=== PATIENT | female | born 1990 ===

== ENCOUNTER 2020-07-01 13:45 | Emergency (ER) | payer SELFPAY ==
--- NOTE | 2020-07-01 14:13 | Emergency Department Report ---
Blank Doc - Documentation Documentation: 30-year-old female that presents with right breast pain, redness, and swelling. Exam: severe swelling to right breast with pain and swelling. 1- This initial assessment/diagnostic orders/clinical plan/ treatment(s) is/are subject to change based on pt's health status, clinical progression and re- assessment by fellow clinical providers in the ED. Further treatment and workup at subsequent clinical provers discretion. Patient/guardians urged not to elope from ED as their condition may be serious if not clinically assessed and managed. 2-labs 3-possible CT/US soft tissue
[2020-07-01 14:43] LABS: Basophils # (Auto) 0.1 K/mm3 (0.0-0.1); Basophils % (Auto) 1.8 % (0.0-1.8); Eosinophils # (Auto) 0.1 K/mm3 (0.0-0.4); Eosinophils % (Auto) 1.3 % (0.0-4.3); Hematocrit 39.9 % (30.3-42.9); Hemoglobin 13.7 gm/dl (10.1-14.3); Lymphocytes # (Auto) 0.8 K/mm3 (1.2-5.4); Lymphocytes % (Auto) 11.4 % (13.4-35.0); Mean Corpuscular HGB Conc 34 % (30-34); Mean Corpuscular Volume 80 fl (79-97); Monocytes # (Auto) 0.4 K/mm3 (0.0-0.8); Monocytes % (Auto) 5.1 % (0.0-7.3); Platelet Count 227 K/mm3 (140-440); Red Blood Count 4.98 M/mm3 (3.65-5.03); Red Cell Distribution Width 14.2 % (13.2-15.2)
[2020-07-01 14:51] LABS: Alanine Aminotransferase 19 units/L (7-56); Albumin 4.4 g/dL (3.9-5); Blood Urea Nitrogen 10 mg/dL (7-17); Calcium 8.9 mg/dL (8.4-10.2); Hemolysis Index 1
[2020-07-01 14:52] LABS: BUN/Creatinine Ratio 17
[2020-07-01] MEDS ORDERED: KETOROLAC 30 MG/1 ML INJ IV ONE (16:21)
[2020-07-01] MEDS ORDERED: CLINDAMYCIN 600 MG/50 mL 600 MG/50 ML BAG IV ONE (16:21)
--- NOTE | 2020-07-01 16:24 | Emergency Department Report ---
- General Chief complaint: Skin/Abscess/Foreign Body Stated complaint: RT BREAST CYST Time Seen by Provider: 07/01/20 14:10 Source: patient Mode of arrival: Ambulatory Limitations: No Limitations - History of Present Illness Initial comments: 30-year-old female with no significant past medical or surgical history presents to the hospital planing of progressively worsening right breast swelling and pain for the past 3 days. Patient states she has similar swelling and pain secondary to infection 1 month ago. She was treated at a [facility] ED with Bactrim and [place] (without I&D) with improvement in swelling and pain. Symptoms reoccurred 3 days ago. Patient complains of 10/10 pain that is constant worse with movement and palpation. No fever reported. Patient states she had a bar piercing placed 3 years ago with retained foreign body. The bar was removed but the ball that held the bar in place is still within her areola/nipple area and the skin has a grown over it. - Related Data Previous Rx's Medication Instructions Recorded Last Taken Type Clindamycin [Clindamycin CAP] 450 mg PO Q8HR 7 Days capsule 07/01/20 Unknown Rx HYDROcodone/APAP 5-325 [[place] 1 each PO Q6HR PRN #14 tablet 07/01/20 Unknown Rx 5/325] Ibuprofen [Motrin] 600 mg PO Q8H PRN #20 tablet 07/01/20 Unknown Rx Allergies Allergy/AdvReac Type Severity Reaction Status Date / Time No Known Allergies Allergy Unverified 07/01/20 13:51 Abscess Boil HPI - HPI Chief Complaint: Skin/Abscess/Foreign Body Stated Complaint: RT BREAST CYST Time Seen by Provider: 07/01/20 14:10 Home Medications: Previous Rx's Medication Instructions Recorded Last Taken Type Clindamycin [Clindamycin CAP] 450 mg PO Q8HR 7 Days capsule 07/01/20 Unknown Rx HYDROcodone/APAP 5-325 [[place] 1 each PO Q6HR PRN #14 tablet 07/01/20 Unknown Rx 5/325] Ibuprofen [Motrin] 600 mg PO Q8H PRN #20 tablet 07/01/20 Unknown Rx Allergies/Adverse Reactions: Allergies Allergy/AdvReac Type Severity Reaction Status Date / Time No Known Allergies Allergy Unverified 07/01/20 13:51 ED Review of Systems ROS: Stated complaint: RT BREAST CYST Other details as noted in HPI Comment: All other systems reviewed and negative ED Past Medical Hx - Past Medical History Previous Medical History?: No - Surgical History Past Surgical History?: No - Social History Smoking Status: Never Smoker Substance Use Type: Marijuana - Medications Home Medications: Home Medications Medication Instructions Recorded Confirmed Last Taken Type Clindamycin [Clindamycin CAP] 450 mg PO Q8HR 7 Days capsule 07/01/20 Unknown Rx HYDROcodone/APAP 5-325 [[place] 1 each PO Q6HR PRN #14 tablet 07/01/20 Unknown Rx 5/325] Ibuprofen [Motrin] 600 mg PO Q8H PRN #20 tablet 07/01/20 Unknown Rx ED Physical Exam - General Limitations: No Limitations - Other Other exam information: General: No acute distress Head: Atraumatic Eyes: normal appearance ENT: Moist mucous membranes Neck: Normal appearance, no midline tenderness Chest: Swelling to right areola greatest at the superior area of the right areola with swelling and redness to superior inferior breast area with diffuse tenderness. No significant induration. Mild fluctuance at the areolar area. Very tender to palpation CV: Regular rate and rhythm Abdomen: Soft, normal bowel sounds, nontender, nondistended, no rebound or guarding Back: Normal inspection Extremity: Normal inspection, full range of motion Neuro: Alert O x 3, no facial asymmetry, speech clear, no gross motor sensory deficit Psych: Appropriate behavior Skin: No rash ED Course Vital Signs 07/01/20 07/01/20 07/01/20 13:51 17:10 17:17 Temperature 97.8 F Pulse Rate 79 Respiratory 20 18 18 Rate Blood Pressure 114/59 O2 Sat by Pulse 97 97 Oximetry 07/01/20 07/01/20 07/01/20 17:47 18:12 18:42 Temperature Pulse Rate Respiratory 18 1 L 18 Rate Blood Pressure O2 Sat by Pulse Oximetry - Consultations Consultation #1: 07/01/20 18:[address] Nick breast surgeon who advises that patient needs to follow-up as outpatient for possible aspiration of abscess. This will likely be done by radiologist with ultrasound guidance. She requests a breast ultrasound prior to discharge and for patient to call the office number tomorrow for follow-up. ED Medical Decision Making - Lab Data Result diagrams: 07/01/20 14:25 07/01/20 14:25 Lab Results 07/01/20 07/01/20 07/01/20 Range/Units 14:25 14:25 14:25 WBC 7.4 (4.5-11.0) K/mm3 RBC 4.98 (3.65-5.03) M/mm3 Hgb 13.7 (10.1-14.3) gm/dl Hct 39.9 (30.3-42.9) % MCV 80 (79-97) fl MCH 28 (28-32) pg MCHC 34 (30-34) % RDW 14.2 (13.2-15.2) % Plt Count 227 (140-440) K/mm3 Lymph % (Auto) 11.4 L (13.4-35.0) % [place] % (Auto) 5.1 (0.0-7.3) % Eos % (Auto) 1.3 (0.0-4.3) % Baso % (Auto) 1.8 (0.0-1.8) % Lymph # (Auto) 0.8 L (1.2-5.4) K/mm3 [place] # (Auto) 0.4 (0.0-0.8) K/mm3 Eos # (Auto) 0.1 (0.0-0.4) K/mm3 Baso # (Auto) 0.1 (0.0-0.1) K/mm3 Seg Neutrophils % 80.4 H (40.0-70.0) % Seg Neutrophils # 5.9 (1.8-7.7) K/mm3 Sodium 138 (137-145) mmol/L Potassium 4.3 (3.6-5.0) mmol/L Chloride 104.6 (98-107) mmol/L Carbon Dioxide 28 (22-30) mmol/L Anion Gap 10 mmol/L BUN 10 (7-17) mg/dL Creatinine 0.6 (0.6-1.2) mg/dL Estimated GFR > 60 ml/min BUN/Creatinine Ratio 17 % Glucose 91 (65-100) mg/dL Calcium 8.9 (8.4-10.2) mg/dL Total Bilirubin 0.70 (0.1-1.2) mg/dL AST 19 (5-40) units/L ALT 19 (7-56) units/L Alkaline Phosphatase 72 (35-129) units/L Total Protein 7.1 (6.3-8.2) g/dL Albumin 4.4 (3.9-5) g/dL Albumin/Globulin Ratio 1.6 % HCG, Qual Negative (Negative) - Radiology Data Radiology results: report reviewed CT CHEST WITH CONTRAST INDICATION / CLINICAL INFORMATION: Right breast swelling. TECHNIQUE: Axial CT images were obtained through the chest after 100 cc of Omnipaque [address] scans at this location are performed using CT dose reduction for ALARA by means of automated exposure control. COMPARISON: None available. FINDINGS: HEART: No significant abnormality. THORACIC AORTA: No significant abnormality. MEDIASTINUM and TICO: No significant abnormality. LUNGS: No acute air space or interstitial disease. PLEURA: No significant pleural effusion. No pneumothorax. ADDITIONAL FINDINGS: There is a metallic foreign body in the anterior aspect of the right breast. Adjacent to this there is a 3.3 x 1.4 cm fluid collection within enhancing rim could represent hematoma or abscess. There is skin thickening in the right breast. UPPER ABDOMEN: No significant abnormality. SKELETAL SYSTEM: No acute abnormality. IMPRESSION: 1. There is a metallic foreign body in the anterior right breast. There is a fluid. Collection with enhancing rim in the anterior right breast which could represent abscess or hematoma. There is skin thickening. The possibility that the changes in the right breast could represent neoplasm are included in the differential diagnosis though felt to be less likely. Correlation with physical exam is recommended. US breast RT complete INDICATION / CLINICAL INFORMATION: right breast fluid collection. COMPARISON: CT from 07/01/2020 FINDINGS: There is a 2.6 x 1.3 x 3.4 cm mixed echogenicity collection in the retroareolar right breast. 4 mm metallic foreign body is present in the collection. There is adjacent hyperemia without discrete internal Doppler flow. Diffuse subcutaneous edema seen throughout the right breast. IMPRESSION: 3.4 cm collection in the right breast is most consistent with abscess. Metallic foreign body is present within the region of the fluid collection. Following resolution of acute process, mammographic follow-up is recommended. Critical Care Time: No Critical care attestation.: If time is entered above; I have spent that time in minutes in the direct care of this critically ill patient, excluding procedure time. ED Disposition Clinical Impression: Abscess of right breast, Foreign body of right breast with infection Disposition: - TO HOME OR SELFCARE Is pt being admited?: No Does the pt Need Aspirin: No Condition: Stable Instructions: Skin Abscess Additional Instructions: It is very important that you call the breast surgeon provided tomorrow morning (07/02) for an appointment this week. It is likely that the breast surgeon will arrange for you to have drainage of your abscess which is necessary for complete treatment of your infection. Take the medication as prescribed. Return if symptoms worsen as indicated by your discharge instructions. Prescriptions: Clindamycin [Clindamycin CAP] 450 mg PO Q8HR 7 Days capsule Ibuprofen [Motrin] 600 mg PO Q8H PRN #20 tablet PRN Reason: Pain HYDROcodone/APAP 5-325 [[place] 5/325] 1 each PO Q6HR PRN #14 tablet PRN Reason: Pain Referrals: KRYSTINA NICK MD [Staff Physician] - 2-3 Days (breast surgeon) Time of Disposition: 23:55
[2020-07-01] MEDS ORDERED: ONDANSETRON 4 MG/2 ML INJ IV ONE ×2 (17:32→21:44)
[2020-07-01] MEDS ORDERED: MORPHINE 4 MG/1 ML INJ IV ONE ×2 (17:32→21:44)
--- NOTE | 2020-07-01 17:42 | Cat Scan Report ---
CT CHEST WITH CONTRAST INDICATION / CLINICAL INFORMATION: Right breast swelling. TECHNIQUE: Axial CT images were obtained through the chest after 100 cc of Omnipaque [address] sca ns at this location are performed using CT dose reduction for ALARA by means of automated exposure co ntrol. COMPARISON: None available. FINDINGS: HEART: No significant abnormality. THORACIC AORTA: No significant abnormality. MEDIASTINUM and TICO: No significant abnormality. LUNGS: No acute air space or interstitial disease. PLEURA: No significant pleural effusion. No pneumothorax. ADDITIONAL FINDINGS: There is a metallic foreign body in the anterior aspect of the right breast. Adj acent to this there is a 3.3 x 1.4 cm fluid collection within enhancing rim could represent hematoma or abscess. There is skin thickening in the right breast. UPPER ABDOMEN: No significant abnormality. SKELETAL SYSTEM: No acute abnormality. IMPRESSION: 1. There is a metallic foreign body in the anterior right breast. There is a fluid. Collection with e nhancing rim in the anterior right breast which could represent abscess or hematoma. There is skin th ickening. The possibility that the changes in the right breast could represent neoplasm are included in the differential diagnosis though felt to be less likely. Correlation with physical exam is recomm ended. Signer Name: Joseph Mckeon MD Signed: 07/01/2020 5:38 PM Workstation Name: [id number]
--- NOTE | 2020-07-01 23:45 | Ultrasound Report ---
US breast RT complete INDICATION / CLINICAL INFORMATION: right breast fluid collection. COMPARISON: CT from 07/01/2020 FINDINGS: There is a 2.6 x 1.3 x 3.4 cm mixed echogenicity collection in the retroareolar right breast. 4 mm me tallic foreign body is present in the collection. There is adjacent hyperemia without discrete editing internship al Doppler flow. Diffuse subcutaneous edema seen throughout the right breast. IMPRESSION: 3.4 cm collection in the right breast is most consistent with abscess. Metallic foreign body is prese nt within the region of the fluid collection. Following resolution of acute process, mammographic fol low-up is recommended. Signer Name: García Nance MD Signed: 07/01/2020 11:40 PM Workstation Name: [id number]
[2020-07-02] MEDS ORDERED: HYDROcodone/ACETAMINOPHEN 5-325 MG TAB PO ONE (00:01)
[2020-07-02 00:18] VITALS: BP 132/69
== END 2020-07-02 00:17 | disposition home or self-care (01) ==
LOC: ED 13:45
DX: S20.151A Superficial foreign body of breast, right breast, initial encounter (principal); N61.1 Abscess of the breast and nipple; F12.90 Cannabis use, unspecified, uncomplicated; Z79.899 Other long term (current) drug therapy; X58.XXXA Exposure to other specified factors, initial encounter; Y93.89 Activity, other specified; Y92.89 Other specified places as the place of occurrence of the external cause; Y99.8 Other external cause status
CPT/HCPCS: 36415; 71260; 76641; 80053; 84703; 85025; 96365; 96375; 96376; 99284; J1885; J2270; J2405; Q9967

== ENCOUNTER 2020-07-04 18:29 | Emergency (ER) | payer SELFPAY ==
[2020-07-04] MEDS ORDERED: LIDOCAINE (1%) 10 MG/1 ML VIAL 20 ML MDV INFILTRATI ONE (20:56)
--- NOTE | 2020-07-04 22:04 | Emergency Department Report ---
ED General Adult HPI - General Chief complaint: Skin/Abscess/Foreign Body Stated complaint: ABSCESS LEAKING Time Seen by Provider: 07/04/20 19:23 Source: patient Mode of arrival: Ambulatory Limitations: No Limitations - History of Present Illness Initial comments: 30-year-old -English female patient presents with complaints of worsening right breast pain and drainage today. Patient was seen here on 07/01/2020 for a abscess of the right breast and placed on clindamycin and referred to breast surgeon. She states compliance with her antibiotics and denies any fever/chills/sweats or worsening of the swelling of the breasts. No prior medical history per patient. Patient rates her pain as a 9/10 in severity - Related Data Previous Rx's Medication Instructions Recorded Last Taken Type Clindamycin [Clindamycin CAP] 450 mg PO Q8HR 7 Days capsule 07/01/20 Unknown Rx HYDROcodone/APAP 5-325 [[place] 1 each PO Q6HR PRN #14 tablet 07/01/20 Unknown Rx 5/325] Ibuprofen [Motrin] 600 mg PO Q8H PRN #20 tablet 07/01/20 Unknown Rx Acetaminophen/Codeine [Tylenol 1 tab PO Q6H PRN #12 tab 07/04/20 Unknown Rx /Codeine # 3 tab] Sulfamethoxazole/Trimethoprim 1 each PO BID 7 Days #14 tablet 07/04/20 Unknown Rx [Bactrim DS TAB] Allergies Allergy/AdvReac Type Severity Reaction Status Date / Time No Known Allergies Allergy Verified 07/04/20 18:43 ED Review of Systems ROS: Stated complaint: ABSCESS LEAKING Other details as noted in HPI Constitutional: denies: chills, diaphoresis, fever, malaise, weakness Respiratory: denies: shortness of breath Cardiovascular: as per HPI Skin: change in color, pruritus Hematological/Lymphatic: denies: swollen glands ED Past Medical Hx - Social History Smoking Status: Current Some Day Smoker Substance Use Type: None - Medications Home Medications: Home Medications Medication Instructions Recorded Confirmed Last Taken Type Clindamycin [Clindamycin CAP] 450 mg PO Q8HR 7 Days capsule 07/01/20 Unknown Rx HYDROcodone/APAP 5-325 [[place] 1 each PO Q6HR PRN #14 tablet 07/01/20 Unknown Rx 5/325] Ibuprofen [Motrin] 600 mg PO Q8H PRN #20 tablet 07/01/20 Unknown Rx Acetaminophen/Codeine [Tylenol 1 tab PO Q6H PRN #12 tab 07/04/20 Unknown Rx /Codeine # 3 tab] Sulfamethoxazole/Trimethoprim 1 each PO BID 7 Days #14 tablet 07/04/20 Unknown Rx [Bactrim DS TAB] ED Physical Exam - General Limitations: No Limitations General appearance: alert, in no apparent distress - Head Head exam: Present: atraumatic, normocephalic - Respiratory Respiratory exam: Present: normal lung sounds bilaterally. Absent: respiratory distress - Cardiovascular Cardiovascular Exam: Present: regular rate, tachycardia (Mild) - Extremities Exam Extremities exam: Present: full ROM - Neurological Exam Neurological exam: Present: alert, oriented X3, normal gait - Psychiatric Psychiatric exam: Present: normal affect, normal mood - Skin Skin exam: Present: warm, dry, other (Swelling and induration noted to right breast with open draining abscess noted at approximately 12:00 of the areola; there is surrounding mild cellulitis noted; significant tenderness to palpation noted) ED Course Vital Signs 07/04/20 07/04/20 18:44 23:41 Temperature 98.9 F Pulse Rate 109 H 89 Respiratory 22 18 Rate Blood Pressure 144/91 Blood Pressure 142/95 [Left] O2 Sat by Pulse 97 96 Oximetry - I & D Chest Type of Procedure: Simple Site: Right breast I & D Procedure: betadine prep, sterile drapes applied, sterile dressing applied Progress: 10 cc of lidocaine 1% without epi used to anesthetize area. Moderate purulent drainage was obtained. Sample was sent for wound culture. Minimal bleeding occurred. Patient tolerated procedure well without any immediate complications. Sterile dressing applied. ED Medical Decision Making - Lab Data Result diagrams: 07/04/20 22:33 07/04/20 22:33 Lab Results 07/04/20 07/04/20 07/04/20 Range/Units 22:33 22:33 22:33 WBC 13.0 H (4.5-11.0) K/mm3 RBC 5.09 H (3.65-5.03) M/mm3 Hgb 14.2 (10.1-14.3) gm/dl Hct 40.6 (30.3-42.9) % MCV 80 (79-97) fl MCH 28 (28-32) pg MCHC 35 H (30-34) % RDW 13.9 (13.2-15.2) % Plt Count 251 (140-440) K/mm3 Sodium 134 L (137-145) mmol/L Potassium 3.9 (3.6-5.0) mmol/L Chloride 99.3 (98-107) mmol/L Carbon Dioxide 25 (22-30) mmol/L Anion Gap 14 mmol/L BUN 7 (7-17) mg/dL Glucose 89 (65-100) mg/dL Calcium 9.0 (8.4-10.2) mg/dL Total Bilirubin 0.90 (0.1-1.2) mg/dL AST 17 (5-40) units/L ALT 12 (7-56) units/L Alkaline Phosphatase 78 (35-129) units/L Total Protein 8.0 (6.3-8.2) g/dL Albumin 4.3 (3.9-5) g/dL Albumin/Globulin Ratio 1.2 % HCG, Qual Negative (Negative) - Medical Decision Making 30-year-old -English female patient presents with complaints of worsening right breast pain and drainage today. Patient was seen here on 07/01/2020 for a abscess of the right breast and placed on clindamycin and referred to breast surgeon. She states compliance with her antibiotics and denies any fever/chills/sweats or worsening of the swelling of the breasts. No prior medical history per patient. Patient rates her pain as a 9/[address] done on 07/01/2020 showed abscess with foreign body-patient states this is part of her ring has been stuck for a few years Incision and drainage performed. Patient tolerated procedure well. Wound culture sent. Heart rate noted to be mildly elevated at 109. CBC shows white count of 13, however patient remains afebrile and heart rate is now normal. Patient given IV Rocephin and Bactrim added in addition to her clindamycin. Patient informed to follow-up with breast surgeon within 2 days for further evaluation and removal of foreign body from her breast. Wound care was discussed in great detail along with importance of warm compresses. Discussed signs and symptoms that should prompt immediate return to the emergency department in detail with patient who verbalized understanding. Critical care attestation.: If time is entered above; I have spent that time in minutes in the direct care of this critically ill patient, excluding procedure time. ED Disposition Clinical Impression: Cellulitis of right breast, Abscess of right breast Disposition: DC-01 TO HOME OR SELFCARE Is pt being admited?: No Condition: Stable Instructions: Cellulitis, Adult, Mastitis, Incision and Drainage, Care After Additional Instructions: Please follow-up with your breast surgeon in 2 days Prescriptions: Sulfamethoxazole/Trimethoprim [Bactrim DS TAB] 1 each PO BID 7 Days #14 tablet Acetaminophen/Codeine [Tylenol /Codeine # 3 tab] 1 tab PO Q6H PRN #12 tab PRN Reason: Pain , Severe (7-10) Referrals: PRIMARY CARE,MD [Primary Care Provider] - 3-5 Days
[2020-07-04] MEDS ORDERED: ONDANSETRON 4 MG ODT TAB PO ONE (22:05)
[2020-07-04] MEDS ORDERED: cefTRIAXone/NS 1 GM/50 ML 1 GM/50 ML BAG IV ONE (22:05)
[2020-07-04] MEDS ORDERED: MORPHINE 4 MG/1 ML INJ IV ONE (22:05)
[2020-07-04] MEDS ORDERED: KETOROLAC 30 MG/1 ML INJ IV ONE (22:16)
[2020-07-04 22:50] LABS: Hematocrit 40.6 % (30.3-42.9); Hemoglobin 14.2 gm/dl (10.1-14.3); Mean Corpuscular HGB Conc 35 % (30-34); Mean Corpuscular Volume 80 fl (79-97); Platelet Count 251 K/mm3 (140-440); Red Blood Count 5.09 M/mm3 (3.65-5.03); Red Cell Distribution Width 13.9 % (13.2-15.2)
[2020-07-04 23:13] LABS: Alanine Aminotransferase 12 units/L (7-56); Albumin 4.3 g/dL (3.9-5); Blood Urea Nitrogen 7 mg/dL (7-17); Hemolysis Index 2
[2020-07-04 23:17] LABS: BUN/Creatinine Ratio 14
[2020-07-04 23:43] VITALS: BP 142/95
[2020-07-05 02:10] LABS: Band Neutrophils # (Manual) 0.5 K/mm3; Platelet Estimate Consistent w Auto; RBC Morphology Normal; Total Cells Counted 100
== END 2020-07-04 23:43 | disposition home or self-care (01) ==
LOC: ED 18:29
DX: N61.0 Mastitis without abscess (principal); F17.200 Nicotine dependence, unspecified, uncomplicated; Z79.899 Other long term (current) drug therapy
CPT/HCPCS: 10060; 36415; 80053; 84703; 85007; 85025; 87116; 96365; 96375; 99283; J0696; J1885; J2270; Q0162